=== PATIENT | male | born 1965 | race Asian ===

== ENCOUNTER 2020-03-04 17:56 | Emergency (ER) | payer OTHER ==
[~2020-03-04] VITALS: Ht 165.1 cm; Wt 72.6 kg
[2020-03-04 19:04] VITALS: BP 185/105; TEMP 98
== END 2020-03-04 19:08 | disposition home or self-care (01) ==
LOC: ED 17:56
DX: I10 Essential (primary) hypertension (principal); Z76.0 Encounter for issue of repeat prescription; F17.210 Nicotine dependence, cigarettes, uncomplicated
CPT/HCPCS: 99282